=== PATIENT | female | born 1975 | race Caucasian/White ===

== ENCOUNTER 2019-05-22 04:01 | Emergency (ER) | payer OTHER ==
[~2019-05-22] VITALS: Ht 160 cm; Wt 83.4 kg
[~2019-05-22 04:01] MED LIST: ACET-2047 PO; DOCU-144 PO; HYDR-4011 PO; ONDA4TAB35 PO
[2019-05-22 04:03] VITALS: Ht 160 cm; Wt 83.4 kg
[2019-05-22] MEDS ORDERED: LIDOCAINE 2% VISC 15 ML CUP PO ONE (05:00)
[2019-05-22] MEDS ORDERED: AL HYDROX/MG HYDROX/SIMETH 30 ML CUP PO ONE (05:00)
[2019-05-22 06:06] VITALS: BP 107/82; PULSE 53; RESP 16
== END 2019-05-22 06:08 | disposition home or self-care (01) ==
LOC: E/R 04:01
DX: R10.13 Epigastric pain (principal); R40.2142 Coma scale, eyes open, spontaneous, at arrival to emergency department; R40.2252 Coma scale, best verbal response, oriented, at arrival to emergency department; R40.2362 Coma scale, best motor response, obeys commands, at arrival to emergency department
CPT/HCPCS: 36415; 80053; 81001; 83690; 85025; 93005; Z7502; Z7610; 99283